=== PATIENT | female | born 1980 | race Caucasian/White ===

== ENCOUNTER 2019-01-01 10:39 | Emergency (ER) | payer BC ==
[~2019-01-01] VITALS: Ht 160 cm; Wt 57.6 kg
== END 2019-01-01 14:26 | disposition home or self-care (01) ==
LOC: ER 10:39
DX: S42.475A Nondisplaced transcondylar fracture of left humerus, initial encounter for closed fracture (principal); W18.09XA Striking against other object with subsequent fall, initial encounter; Y93.89 Activity, other specified; Y92.488 Other paved roadways as the place of occurrence of the external cause; Y99.8 Other external cause status